=== PATIENT | male | born 1965 | race Caucasian/White ===

== ENCOUNTER 2024-09-29 06:21 | Day surgery (SDC) | payer BC, SELFPAY | END 2024-09-29 16:16 | disposition home or self-care (01) | LOC: GI 06:21 | PROVIDERS: ATTENDING PHYSICIAN Internal Medicine Gastroenterology; FAMILY PHYSICIAN Nurse Practitioner Adult Health | DX: Z12.11 Encounter for screening for malignant neoplasm of colon (principal); D12.3 Benign neoplasm of transverse colon; D12.4 Benign neoplasm of descending colon; K63.5 Polyp of colon; K63.89 Other specified diseases of intestine; K57.30 Diverticulosis of large intestine without perforation or abscess without bleeding; K64.8 Other hemorrhoids; Z86.0101 Personal history of adenomatous and serrated colon polyps | CPT/HCPCS: 45385; 45380; 88305 ==

== ENCOUNTER → 2025-06-08 09:48 | Outpatient (REF) | payer BC, SELFPAY | LOC: RAD 09:48 | PROVIDERS: ATTENDING PHYSICIAN Nurse Practitioner Adult Health | DX: M79.642 Pain in left hand (principal); M79.645 Pain in left finger(s); M25.532 Pain in left wrist | CPT/HCPCS: 73110; 73130; 73140 ==